=== PATIENT | male | born 1995 | race Caucasian/White ===

== ENCOUNTER 2017-11-13 09:22 | Emergency (ER) | payer OTHER ==
--- NOTE | 2017-11-13 09:55 | ERPHSYRPT ---
- History of Present Illness Time Seen by Provider: 11/13/17 09:44 Source: patient, family Exam Limitations: no limitations Patient Subjective Stated Complaint: Pt states "I started to vomit this morning around 7 am and it is changing color. It started out clear and now it is a brownish color" Triage Nursing Assessment: Pt alert and oriented X 3, skin pwd. Pt ambulates without difficulty, able to speak in clear full sentences. No apparent respiratory distress. Physician History: The patient is a 22-year-old male with his girlfriend and mother complaining that he vomited 3 times over the last 2-1/2 hours. He first vomited at 7 AM. The patient states that he feels a choking feeling in his throat, he then coughs , and then he vomits. He denies any abdominal pain. He denies diarrhea or fever. Stomach contents has been fluid without food. He works nights and on the way home from work he drank a Pepsi. He is concerned because the color of the vomit has gone from clear to brown to some pinkish. He last ate at 2 AM or 7 hours ago. His last meal was chicken. His past medical history is significant only for a bone spur in his left shoulder that was shaved during surgery. He takes no medicines. Timing/Duration: today, hour(s) (2 2/12 hrs), sudden Severity: mild Modifying Factors: Improves With: nothing Associated Symptoms: vomiting, No nausea, No abdominal pain, No chills, No fever , No syncope, No weakness Allergies/Adverse Reactions: Fish Containing Products Adverse Reaction (Verified 11/13/17 09:33) sick Hx Tetanus, Diphtheria Vaccination/Date Given: No Hx Influenza Vaccination/Date Given: No Hx Pneumococcal Vaccination/Date Given: No Immunizations Up to Date: Yes - Review of Systems Constitutional: No Fever, No Chills Eyes: No Symptoms Ears, Nose, & Throat: No Symptoms Respiratory: No Cough, No Dyspnea Cardiac: No Chest Pain, No Edema, No Syncope Abdominal/Gastrointestinal: Vomiting, No Abdominal Pain, No Nausea, No Diarrhea , No Hematemesis Genitourinary Symptoms: No Dysuria Musculoskeletal: No Back Pain, No Neck Pain Skin: No Rash Neurological: No Dizziness, No Focal Weakness, No Sensory Changes Psychological: No Symptoms Endocrine: No Symptoms Hematologic/Lymphatic: No Symptoms Immunological/Allergic: No Symptoms All Other Systems: Reviewed and Negative - Past Medical History Pertinent Past Medical History: No - Past Surgical History Past Surgical History: Yes Other Surgical History: bone spur off left clavicle - Social History Smoking Status: Never smoker Exposure to second hand smoke: No Drug Use: none Patient Lives Alone: No - Nursing Vital Signs Nursing Vital Signs: Initial Vital Signs Temperature 96.6 F 11/13/17 09:26 Pulse Rate 108 H 11/13/17 09:26 Respiratory Rate 16 11/13/17 09:26 Blood Pressure 178/106 11/13/17 09:26 O2 Sat by Pulse Oximetry 100 11/13/17 09:26 Pain Scale Pain Intensity 0 - Physical Exam General Appearance: no apparent distress, alert Eye Exam: PERRL/EOMI, eyes nml inspection Ears, Nose, Throat Exam: normal ENT inspection, TMs normal, pharynx normal, moist mucous membranes Neck Exam: normal inspection, non-tender, supple, full range of motion Respiratory Exam: normal breath sounds, lungs clear, No respiratory distress Cardiovascular Exam: normal heart sounds, normal peripheral pulses, tachycardia Gastrointestinal/Abdomen Exam: soft, normal bowel sounds, No tenderness, No mass Rectal Exam: not done Back Exam: normal inspection, normal range of motion, No CVA tenderness, No vertebral tenderness Extremity Exam: normal inspection, normal range of motion, pelvis stable Neurologic Exam: alert, oriented x 3, cooperative, normal mood/affect, nml cerebellar function, nml station & gait, sensation nml, No motor deficits Skin Exam: normal color, warm, dry, No rash Lymphatic Exam: No adenopathy SpO2 Interpretation: normal SpO2: 100 Oxygen Delivery: Room Air - Radiology Exams Chest X-ray Interpretation: Reviewed by me, Teleradiologist Report, Negative (per Dr Romero) Abdomen X-ray Interpretation: Reviewed by me, Teleradiologist Report, Negative (per Dr Romero.) Ordered Tests: Active Orders 24 hr Category Date Time Status IV Insertion STAT Care 11/13/17 10:00 Active OBSTR/ACUTE ABDOMEN SERIES Stat Exams 11/13/17 10:01 Completed CBC W DIFF Stat Lab 11/13/17 10:24 Completed CMP Stat Lab 11/13/17 10:24 Completed LIPASE Stat Lab 11/13/17 10:24 Completed Lactic Acid Stat Lab 11/13/17 10:00 Completed UA W/RFX UR CULTURE Stat Lab 11/13/17 10:31 Completed Urine Triage Profile Stat Lab 11/13/17 10:31 Completed Medication Summary Discontinued Medications Generic Name Dose Route Start Last Admin Trade Name Jalyn PRN Reason Stop Dose Admin Sodium Chloride 1,000 mls @ 999 mls/hr 11/13/17 10:00 11/13/17 10:20 Sodium Chloride 0.9% 1000 Ml IV 11/13/17 11:00 999 mls/hr .Q1H1M STA Administration Sodium Chloride Confirm 11/13/17 10:10 Sodium Chloride 0.9% 1000 Ml Administered 11/13/17 10:11 Dose 1,000 mls @ ud .ROUTE .STK-MED ONE Promethazine HCl 25 mg 11/13/17 10:00 11/13/17 10:20 Phenergan 25 Mg Inj IV 11/13/17 10:01 25 mg STAT ONE Administration Promethazine HCl Confirm 11/13/17 10:10 Phenergan 25 Mg Inj Administered 11/13/17 10:11 Dose 25 mg .ROUTE .STK-MED ONE Lab/Rad Data: Laboratory Result Diagrams 11/13/17 10:24 11/13/17 10:24 Laboratory Results 11/13/17 11/13/17 11/13/17 Range/Units 10:31 10:31 10:24 WBC (4.0-10.5) K/mm3 RBC (4.1-5.6) M/mm3 Hgb (12.5-18.0) gm/dl Hct (42-50) % MCV (78-100) fl MCH (26-32) pg MCHC (32-36) g/dl RDW (11.5-14.0) % Plt Count (150-450) K/mm3 MPV (6-9.5) fl Gran % (36.0-66.0) % Lymphocytes % (24.0-44.0) % Monocytes % (0.0-12.0) % Eosinophils % (0.00-5.0) % Basophils % (0.0-0.4) % Basophils # (0-0.4) Sodium 142 (136-145) mEq/L Potassium 3.6 (3.5-5.1) mEq/L Chloride 105 (98-107) mEq/L Carbon Dioxide 27.6 (21-32) mEq/L Anion Gap 13.2 (5-15) MEQ/L BUN 23 H (9-20) mg/dL Creatinine 1.36 H (0.55-1.30) mg/dl Estimated GFR > 60 ML/MIN Glucose 107 (70-110) MG/DL Lactic Acid (0.4-2.0) Calcium 9.5 (8.5-10.1) mg/dL Total Bilirubin 0.80 (0.2-1.0) mg/dL AST 23 (15-37) U/L ALT 29 (12-78) U/L Alkaline Phosphatase 77 (46-116) U/L Serum Total Protein 7.9 (6.4-8.2) gm/dL Albumin 4.3 (3.4-5.0) g/dL Lipase 144 (73-393) U/L Ur Collection Type VOID Urine Color COLORLESS (YELLOW) Urine Appearance CLEAR (CLEAR) Urine pH 5.0 (5-6) Ur Specific [place] 1.005 (1.005-1.025) Urine Protein NEGATIVE (Negative) Urine Ketones NEGATIVE (NEGATIVE) Urine Blood NEGATIVE (0-5) Nitin/ul Urine Nitrite NEGATIVE (NEGATIVE) Urine Bilirubin NEGATIVE (NEGATIVE) Urine Urobilinogen NORMAL (0-1) mg/dL Ur Leukocyte Esterase NEGATIVE (NEGATIVE) Urine Culture Reflexed NO (NO) Urine Glucose NEGATIVE (NEGATIVE) mg/dL Urine Opiates Level NEG. (NEGATIVE) Ur Methadone NEG. (NEGATIVE) Urine Barbiturates NEG. (NEGATIVE) Ur Phencyclidine (PCP) NEG. (NEGATIVE) Urine Amphetamine NEG. (NEGATIVE) U Benzodiazepine Level NEG. (NEGATIVE) Urine Cocaine NEG. (NEGATIVE) Urine Marijuana (THC) NEG. (NEGATIVE) Specimen Received 11/13/17 1018 11/13/17 11/13/17 Range/Units 10:24 10:00 WBC 9.5 (4.0-10.5) K/mm3 RBC 4.97 (4.1-5.6) M/mm3 Hgb 15.0 (12.5-18.0) gm/dl Hct 43.5 (42-50) % MCV 87.5 (78-100) fl MCH 30.2 (26-32) pg MCHC 34.5 (32-36) g/dl RDW 11.9 (11.5-14.0) % Plt Count 236 (150-450) K/mm3 MPV 9.5 (6-9.5) fl Gran % 68.7 H (36.0-66.0) % Lymphocytes % 26.5 (24.0-44.0) % Monocytes % 4.5 (0.0-12.0) % Eosinophils % 0.1 (0.00-5.0) % Basophils % 0.2 (0.0-0.4) % Basophils # 0.02 (0-0.4) Sodium (136-145) mEq/L Potassium (3.5-5.1) mEq/L Chloride (98-107) mEq/L Carbon Dioxide (21-32) mEq/L Anion Gap (5-15) MEQ/L BUN (9-20) mg/dL Creatinine (0.55-1.30) mg/dl Estimated GFR ML/MIN Glucose (70-110) MG/DL Lactic Acid 0.7 (0.4-2.0) Calcium (8.5-10.1) mg/dL Total Bilirubin (0.2-1.0) mg/dL AST (15-37) U/L ALT (12-78) U/L Alkaline Phosphatase (46-116) U/L Serum Total Protein (6.4-8.2) gm/dL Albumin (3.4-5.0) g/dL Lipase (73-393) U/L Ur Collection Type Urine Color (YELLOW) Urine Appearance (CLEAR) Urine pH (5-6) Ur Specific [place] (1.005-1.025) Urine Protein (Negative) Urine Ketones (NEGATIVE) Urine Blood (0-5) Nitin/ul Urine Nitrite (NEGATIVE) Urine Bilirubin (NEGATIVE) Urine Urobilinogen (0-1) mg/dL Ur Leukocyte Esterase (NEGATIVE) Urine Culture Reflexed (NO) Urine Glucose (NEGATIVE) mg/dL Urine Opiates Level (NEGATIVE) Ur Methadone (NEGATIVE) Urine Barbiturates (NEGATIVE) Ur Phencyclidine (PCP) (NEGATIVE) Urine Amphetamine (NEGATIVE) U Benzodiazepine Level (NEGATIVE) Urine Cocaine (NEGATIVE) Urine Marijuana (THC) (NEGATIVE) Specimen Received - Progress Progress: improved Counseled pt/family regarding: lab results, diagnosis, need for follow-up, rad results - Departure Time of Disposition: 11:59 Departure Disposition: Home Clinical Impression: Vomiting Condition: Stable Critical Care Time: No Referrals: YARITZA GASPAR [Primary Care Provider] - Additional Instructions: You had vomiting this morning. You were given Phenergan 25 mg and fluids by IV in the ER. Take Zofran 4 mg ODT every 6 hours as needed. You were given a work excuse, if needed, for tonight. Follow-up with your primary medical doctor if the condition persists. Prescriptions: Ondansetron ODT 4 MG [Zofran Odt 4 mg] 1 tab PO Q6H PRN PRN #10 tab.rapdis PRN Reason: Nausea/Vomiting
[2017-11-13] MEDS ORDERED: Sodium Chloride 0.9% 1000 ML 1,000 ML ONE (10:10)
[2017-11-13] MEDS ORDERED: Phenergan 25 MG INJ ONE (10:10)
[2017-11-13] MEDS: Sodium Chloride 0.9% 1000 ML 1,000 ML IV STA (10:20)
[2017-11-13] MEDS: Phenergan 25 MG INJ IV ONE (10:20)
[2017-11-13 10:24] LABS: BASOPHIL % 0.2 % (0.0-0.4); Basophil (Absolute #) 0.02 (0-0.4); Eosinophil % 0.1 % (0.00-5.0); Eosinophil (Absolute #) 0.01 (0-0.5); Granulocyte Absolute (ANC) 6.49 (1.4-6.9); Granulocytes % 68.7 % (36.0-66.0); Hematocrit 43.5 % (42-50); Lymphocyte (Absolute #) 2.51 (1.0-4.6); Lymphocytes % 26.5 % (24.0-44.0); Mean Cell Volume 87.5 fl (78-100); Mean Corpuscular Hemoglobin 30.2 pg (26-32); Mean Corpuscular Hgb Concent. 34.5 g/dl (32-36); Mean Platelet Volume 9.5 fl (6-9.5); Monocyte (Absolute #) 0.43 (0.0-1.3); Monocytes % 4.5 % (0.0-12.0); Platelet Count 236 K/mm3 (150-450); Red Blood Count 4.97 M/mm3 (4.1-5.6); Red Cell Distribution Width 11.9 % (11.5-14.0); White Blood Count 9.5 K/mm3 (4.0-10.5)
[2017-11-13 10:34] LABS: Appearance CLEAR (CLEAR); Bilirubin NEGATIVE (NEGATIVE); Blood NEGATIVE Ery/ul (0-5); Glucose NEGATIVE (NEGATIVE); Ketones NEGATIVE (NEGATIVE); Leukocyte Esterase NEGATIVE (NEGATIVE); Nitrite NEGATIVE (NEGATIVE); Protein,Urine Dip NEGATIVE (Negative); Specific Gravity 1.005 (1.005-1.025); Urobilinogen NORMAL mg/dL (0-1)
[2017-11-13 10:44] LABS: Amphetamine,Urine NEG. (NEGATIVE); Barbiturate,Urine NEG. (NEGATIVE); Benzodiazepine,Urine NEG. (NEGATIVE); Cocaine,Urine NEG. (NEGATIVE); Methadone,Urine NEG. (NEGATIVE); Opiate,Urine NEG. (NEGATIVE); PCP,Urine NEG. (NEGATIVE); THC,Urine NEG. (NEGATIVE)
[2017-11-13 10:49] LABS: ALBUMIN 4.3 g/dL (3.4-5.0); ALKALINE PHOSPHATASE 77 U/L (46-116); ANION GAP 13.2 MEQ/L (5-15); BLOOD UREA NITROGEN 23 mg/dL (9-20); CHLORIDE 105 mEq/L (98-107); Calcium 9.5 mg/dL (8.5-10.1); Carbon Dioxide 27.6 mEq/L (21-32); Creatinine 1 1.36 mg/dl (0.55-1.30); EST GLOMERULAR FILTRATION RATE > 60 ML/MIN; Glucose 107 MG/DL (70-110); LIPASE 144 U/L (73-393); Potassium 3.6 mEq/L (3.5-5.1); SGOT/AST 23 U/L (15-37); SGPT/ALT 29 U/L (12-78); SODIUM 142 mEq/L (136-145); Total Protein 7.9 gm/dL (6.4-8.2)
--- NOTE | 2017-11-13 11:04 | XRAY ---
Indication: Vomiting. Comparison: None 2 views of the abdomen nonacute and nonobstructed. Solid organs and osseous structures unremarkable. Single PA chest demonstrates normal heart, lungs, and bony thorax. Impression: Negative abdomen. Normal 1 view chest.
[2017-11-13 12:00] VITALS: BP 140/79; PULSE 80
[2017-11-13 12:02] VITALS: O2SAT 100
== END 2017-11-13 12:10 | disposition home or self-care (01) ==
LOC: ED 09:22
DX: R11.10 Vomiting, unspecified (principal)
CPT/HCPCS: 36415; 74022; 80053; 80307; 81002; 83605; 83690; 85025; 96360; 96374; 99284; J2550

== ENCOUNTER 2019-11-27 02:17 | Emergency (ER) | payer OTHER ==
[2019-11-27] MEDS ORDERED: Sodium Chloride 0.9% 1000 ML 1,000 ML IV STA (02:57)
[2019-11-27] MEDS ORDERED: BENADRYL 50 MG/ML IV ONE (03:04)
[2019-11-27] MEDS ORDERED: Sodium Chloride 0.9% 1000 ML 1,000 ML ONE (03:04)
[2019-11-27] MEDS ORDERED: solu-MEDROL 125 MG IV ONE (03:05)
[2019-11-27] MEDS ORDERED: solu-MEDROL 125 MG ONE (03:07)
[2019-11-27] MEDS ORDERED: BENADRYL 50 MG/ML ONE (03:07)
[2019-11-27 03:11] LABS: Appearance CLEAR (CLEAR); Bilirubin NEGATIVE (NEGATIVE); Blood NEGATIVE Ery/ul (0-5); Glucose NEGATIVE (NEGATIVE); Ketones NEGATIVE (NEGATIVE); Leukocyte Esterase NEGATIVE (NEGATIVE); Nitrite NEGATIVE (NEGATIVE); Protein,Urine Dip NEGATIVE (Negative); Specific Gravity 1.002 (1.005-1.025); Urobilinogen NEGATIVE mg/dL (0-1)
[2019-11-27 03:28] LABS: Amphetamine,Urine NEGATIVE (NEGATIVE); Barbiturate,Urine NEGATIVE (NEGATIVE); Benzodiazepine,Urine NEGATIVE (NEGATIVE); Cocaine,Urine NEGATIVE (NEGATIVE); Methadone,Urine NEGATIVE (NEGATIVE); Opiate,Urine NEGATIVE (NEGATIVE); PCP,Urine NEGATIVE (NEGATIVE); THC,Urine NEGATIVE (NEGATIVE)
[2019-11-27 03:28] LABS: Absolute Neutrophil Ct (ANC) 4.83 (1.4-6.9); Basophil (Absolute #) 0 (0-0.4); Eosinophil % 0.5 % (0.00-5.0); Eosinophil (Absolute #) 0.04 (0-0.5); Hematocrit 42.2 % (42-50); Hemoglobin 14.3 gm/dl (12.5-18.0); Lymphocyte (Absolute #) 2.51 (1.0-4.6); Lymphocytes % 32.3 % (24.0-44.0); Mean Cell Volume 89.8 fl (78-100); Mean Corpuscular Hemoglobin 30.4 pg (26-32); Mean Corpuscular Hgb Concent. 33.9 g/dl (32-36); Mean Platelet Volume 9.5 fl (7.5-11.0); Monocytes % 5.1 % (0.0-12.0); Neutrophil % 62.1 % (36.0-66.0); Platelet Count 253 K/mm3 (150-450); Red Cell Distribution Width 12.2 % (11.5-14.0); White Blood Count 7.8 K/mm3 (4.0-10.5)
[2019-11-27 03:38] LABS: ALBUMIN 4.4 g/dL (3.5-5.0); ALKALINE PHOSPHATASE 68 U/L (38-126); ANION GAP 11.5 MEQ/L (5-15); BLOOD UREA NITROGEN 15 mg/dL (9-20); CHLORIDE 107 mmol/L (98-107); Carbon Dioxide 27 mmol/L (22-30); Creatinine 1 1.05 mg/dL (0.66-1.25); Glucose 161 mg/dL (74-106); LIPASE 105 U/L (23-300); Potassium 3.8 mmol/L (3.5-5.1); SGOT/AST 23 U/L (17-59); SGPT/ALT 21 U/L (0-50); SODIUM 142 mmol/L (137-145); Total Protein 7.4 g/dL (6.3-8.2)
--- NOTE | 2019-11-27 04:41 | ERPHSYRPT ---
- History of Present Illness Time Seen by Provider: 11/27/19 02:50 Historian: patient Exam Limitations: no limitations Patient Subjective Stated Complaint: pt states he has been having abd pain since approx 1600. points to umbilical area and states pain is mostly when he pushes in that area or bends over. states tonight he has had tremors. Triage Nursing Assessment: pt alert and oriented. answers his questions approp. pt ambulatory with steady gait noted. respirations nonalbored with lungs cta. skin pink warm and dry. Physician History: Patient is a 24-year-old male who presents to our ED with complaints of abdominal pain. Pain started approximately 4 PM today. Pain described as a an ache that is localized just left of the umbilicus. Pain occurs with palpation. Pain essentially resolved with rest. No associated trauma. No fever. No nausea or vomiting. No diarrhea. No testicular pain. Symptoms are moderate in intensity. Patient is otherwise healthy. He voices no other complaints at this time. Patient declined pain medication. Timing/Duration: today Activities at Onset: none (Patient was lying down resting when pain began.) Abdominal Pain Onset Location: periumbilical Pain Radiation: no radiation Severity of Pain-Max: moderate Severity of Pain-Current: moderate Modifying Factors: Improves With: palpation Associated Symptoms: denies symptoms Previous symptoms: no prior history Allergies/Adverse Reactions: Fish Containing Products Adverse Reaction (Verified 11/27/19 02:59) sick Home Medications: No Reportable Medications [No Reported Medications] 11/27/19 [History] Hx Tetanus, Diphtheria Vaccination/Date Given: No Hx Influenza Vaccination/Date Given: No Hx Pneumococcal Vaccination/Date Given: No Immunizations Up to Date: No - Review of Systems Constitutional: No Fever, No Chills Eyes: No Symptoms Ears, Nose, & Throat: No Symptoms Respiratory: No Cough, No Dyspnea Cardiac: No Chest Pain, No Edema, No Syncope Abdominal/Gastrointestinal: Abdominal Pain, No Nausea, No Vomiting, No Diarrhea Genitourinary Symptoms: No Symptoms, No Dysuria Musculoskeletal: No Symptoms, No Back Pain, No Neck Pain Skin: No Symptoms, No Rash Neurological: No Symptoms, No Dizziness, No Focal Weakness, No Sensory Changes Psychological: No Symptoms Endocrine: No Symptoms Hematologic/Lymphatic: No Symptoms Immunological/Allergic: No Symptoms All Other Systems: Reviewed and Negative - Past Medical History Pertinent Past Medical History: No - Past Surgical History Past Surgical History: Yes Other Surgical History: bone spur off left clavicle - Social History Smoking Status: Never smoker Exposure to second hand smoke: No Drug Use: none Patient Lives Alone: No - Nursing Vital Signs Nursing Vital Signs: Initial Vital Signs Temperature 98.3 F 11/27/19 02:42 Pulse Rate 108 H 11/27/19 02:42 Respiratory Rate 20 11/27/19 02:42 Blood Pressure 182/114 11/27/19 02:42 O2 Sat by Pulse Oximetry 98 11/27/19 02:42 Pain Scale Pain Intensity 0 - Physical Exam General Appearance: no apparent distress, alert, other (Patient sitting up in bed. He is conversant well-appearing and in no acute distress. Patient declined pain medication. Patient's pain only occurs with palpation to the involved area.) Eye Exam: PERRL/EOMI, eyes nml inspection Ears, Nose, Throat Exam: normal ENT inspection, pharynx normal, moist mucous membranes Neck Exam: normal inspection, non-tender, supple, full range of motion Respiratory Exam: normal breath sounds, lungs clear, No respiratory distress Cardiovascular Exam: regular rate/rhythm, normal heart sounds Gastrointestinal/Abdomen Exam: soft, tenderness (Tenderness to palpation at area just left of the umbilicus. Overlying soft tissue intact. No signs of trauma.), No mass, No guarding Back Exam: normal inspection, normal range of motion, No CVA tenderness, No vertebral tenderness Extremity Exam: normal inspection, normal range of motion, pelvis stable Neurologic Exam: alert, oriented x 3, cooperative, normal mood/affect, nml cerebellar function, sensation nml, No motor deficits Skin Exam: normal color, warm, dry SpO2 Interpretation: normal SpO2: 97 O2 Delivery: Room Air Ordered Tests: Active Orders 24 hr Category Date Time Status IV Insertion STAT Care 11/27/19 02:57 Active ABDOMEN AND PELVIS W CONTRAST [CT] Stat Exams 11/27/19 02:58 Taken CBC W DIFF Stat Lab 11/27/19 03:20 Completed CMP Stat Lab 11/27/19 03:20 Completed LIPASE Stat Lab 11/27/19 03:20 Completed TSH [TSH, 3RD Generation] Stat Lab 11/27/19 03:20 Completed UA W/RFX UR CULTURE Stat Lab 11/27/19 02:45 Completed Urine Triage Profile Stat Lab 11/27/19 02:45 Completed Medication Summary Discontinued Medications Generic Name Dose Route Start Last Admin Trade Name Jalyn PRN Reason Stop Dose Admin Diphenhydramine HCl 25 mg 11/27/19 03:04 11/27/19 03:08 Benadryl 50 Mg/Ml IV 11/27/19 03:05 25 mg STAT ONE Administration Diphenhydramine HCl Confirm 11/27/19 03:07 Benadryl 50 Mg/Ml Administered 11/27/19 03:08 Dose 50 mg .ROUTE .STK-MED ONE Sodium Chloride 1,000 mls @ 999 mls/hr 11/27/19 02:57 11/27/19 04:24 Sodium Chloride 0.9% 1000 Ml IV 11/27/19 03:57 Infused .Q1H1M STA Infusion Sodium Chloride Confirm 11/27/19 03:04 Sodium Chloride 0.9% 1000 Ml Administered 11/27/19 03:05 Dose 1,000 mls @ ud .ROUTE .STK-MED ONE Methylprednisolone Sodium Succinate 125 mg 11/27/19 03:05 11/27/19 03:08 Solu-Medrol 125 Mg IV 11/27/19 03:06 125 mg STAT ONE Administration Methylprednisolone Sodium Succinate Confirm 11/27/19 03:07 Solu-Medrol 125 Mg Administered 11/27/19 03:08 Dose 125 mg .ROUTE .STK-MED ONE Lab/Rad Data: Laboratory Result Diagrams 11/27/19 03:20 11/27/19 03:20 Laboratory Results 11/27/19 11/27/19 11/27/19 Range/Units 03:20 03:20 03:20 WBC 7.8 (4.0-10.5) K/mm3 RBC 4.70 (4.1-5.6) M/mm3 Hgb 14.3 (12.5-18.0) gm/dl Hct 42.2 (42-50) % MCV 89.8 (78-100) fl MCH 30.4 (26-32) pg MCHC 33.9 (32-36) g/dl RDW 12.2 (11.5-14.0) % Plt Count 253 (150-450) K/mm3 MPV 9.5 (7.5-11.0) fl Gran % 62.1 (36.0-66.0) % Eos # (Auto) 0.04 (0-0.5) Absolute Lymphs (auto) 2.51 (1.0-4.6) Absolute Monos (auto) 0.40 (0.0-1.3) Lymphocytes % 32.3 (24.0-44.0) % Monocytes % 5.1 (0.0-12.0) % Eosinophils % 0.5 (0.00-5.0) % Basophils % 0.0 (0.0-0.4) % Absolute Granulocytes 4.83 (1.4-6.9) Basophils # 0 (0-0.4) Sodium 142 (137-145) mmol/L Potassium 3.8 (3.5-5.1) mmol/L Chloride 107 (98-107) mmol/L Carbon Dioxide 27 (22-30) mmol/L Anion Gap 11.5 (5-15) MEQ/L BUN 15 (9-20) mg/dL Creatinine 1.05 (0.66-1.25) mg/dL Estimated GFR > 60.0 ML/MIN Glucose 161 H (74-106) mg/dL Calcium 10.0 (8.4-10.2) mg/dL Total Bilirubin 0.60 (0.2-1.3) mg/dL AST 23 (17-59) U/L ALT 21 (0-50) U/L Alkaline Phosphatase 68 (38-126) U/L Serum Total Protein 7.4 (6.3-8.2) g/dL Albumin 4.4 (3.5-5.0) g/dL Lipase 105 (23-300) U/L TSH 3rd Generation 3.300 (0.47-4.68) mIU/L Urine Color (YELLOW) Urine Appearance (CLEAR) Urine pH (5-6) Ur Specific [place] (1.005-1.025) Urine Protein (Negative) Urine Ketones (NEGATIVE) Urine Blood (0-5) Nitin/ul Urine Nitrite (NEGATIVE) Urine Bilirubin (NEGATIVE) Urine Urobilinogen (0-1) mg/dL Ur Leukocyte Esterase (NEGATIVE) Urine WBC (Auto) (0-5) /HPF Urine RBC (Auto) (0-2) /HPF U Epithel Cells (Auto) (FEW) /HPF Urine Bacteria (Auto) (NEGATIVE) /HPF Urine Culture Reflexed (NO) Urine Glucose (NEGATIVE) mg/dL Urine Opiates Level (NEGATIVE) Ur Methadone (NEGATIVE) Urine Barbiturates (NEGATIVE) Ur Phencyclidine (PCP) (NEGATIVE) Urine Amphetamine (NEGATIVE) U Benzodiazepine Level (NEGATIVE) Urine Cocaine (NEGATIVE) Urine Marijuana (THC) (NEGATIVE) 11/27/19 11/27/19 Range/Units 02:45 02:45 WBC (4.0-10.5) K/mm3 RBC (4.1-5.6) M/mm3 Hgb (12.5-18.0) gm/dl Hct (42-50) % MCV (78-100) fl MCH (26-32) pg MCHC (32-36) g/dl RDW (11.5-14.0) % Plt Count (150-450) K/mm3 MPV (7.5-11.0) fl Gran % (36.0-66.0) % Eos # (Auto) (0-0.5) Absolute Lymphs (auto) (1.0-4.6) Absolute Monos (auto) (0.0-1.3) Lymphocytes % (24.0-44.0) % Monocytes % (0.0-12.0) % Eosinophils % (0.00-5.0) % Basophils % (0.0-0.4) % Absolute Granulocytes (1.4-6.9) Basophils # (0-0.4) Sodium (137-145) mmol/L Potassium (3.5-5.1) mmol/L Chloride (98-107) mmol/L Carbon Dioxide (22-30) mmol/L Anion Gap (5-15) MEQ/L BUN (9-20) mg/dL Creatinine (0.66-1.25) mg/dL Estimated GFR ML/MIN Glucose (74-106) mg/dL Calcium (8.4-10.2) mg/dL Total Bilirubin (0.2-1.3) mg/dL AST (17-59) U/L ALT (0-50) U/L Alkaline Phosphatase (38-126) U/L Serum Total Protein (6.3-8.2) g/dL Albumin (3.5-5.0) g/dL Lipase (23-300) U/L TSH 3rd Generation (0.47-4.68) mIU/L Urine Color COLORLESS (YELLOW) Urine Appearance CLEAR (CLEAR) Urine pH 6.0 (5-6) Ur Specific [place] 1.002 (1.005-1.025) Urine Protein NEGATIVE (Negative) Urine Ketones NEGATIVE (NEGATIVE) Urine Blood NEGATIVE (0-5) Nitin/ul Urine Nitrite NEGATIVE (NEGATIVE) Urine Bilirubin NEGATIVE (NEGATIVE) Urine Urobilinogen NEGATIVE (0-1) mg/dL Ur Leukocyte Esterase NEGATIVE (NEGATIVE) Urine WBC (Auto) NONE (0-5) /HPF Urine RBC (Auto) NONE (0-2) /HPF U Epithel Cells (Auto) NONE (FEW) /HPF Urine Bacteria (Auto) NONE (NEGATIVE) /HPF Urine Culture Reflexed NO (NO) Urine Glucose NEGATIVE (NEGATIVE) mg/dL Urine Opiates Level NEGATIVE (NEGATIVE) Ur Methadone NEGATIVE (NEGATIVE) Urine Barbiturates NEGATIVE (NEGATIVE) Ur Phencyclidine (PCP) NEGATIVE (NEGATIVE) Urine Amphetamine NEGATIVE (NEGATIVE) U Benzodiazepine Level NEGATIVE (NEGATIVE) Urine Cocaine NEGATIVE (NEGATIVE) Urine Marijuana (THC) NEGATIVE (NEGATIVE) - Progress Counseled pt/family regarding: lab results, diagnosis, need for follow-up, rad results - Departure Departure Disposition: Home Clinical Impression: Abdominal pain, Hyperglycemia, Hypertension, Inflammation of subcutaneous tissue Condition: Good Critical Care Time: No Referrals: MYA ORELLANA MD [ACTIVE STAFF] - DOCTOR,NO FAMILY [Primary Care Provider] - Additional Instructions: CAT scan revealed inflammation of subcutaneous tissue. This may be a sterile inflammation versus possible early infection. There is no indication for antibiotics at this time. Please take anti-inflammatory medication for pain. Monitor your symptoms. If you develop any signs of infection such as redness tenderness fever please follow-up in the emergency room immediately. Otherwise follow-up with your primary care doctor within 48 hours for reevaluation. Discharge/Care Plan EVAJERSON NIEVES was seen on 11/27/19 in the Emergency Room. The patient was counseled regarding Diagnosis,Lab results, Imaging studies, need for follow up and when to return to the Emergency Room. Prescriptions given: Discharge Note I have spoken with the patient and/or caregivers. I have explained the patient' s condition, diagnosis and treatment plan based on the information available to me at this time. I have answered the patient's and/or caregiver's questions and addressed any concerns. The patient and/or caregivers have as good understanding of the patient's diagnosis, condition and treatment plan as can be expected at this point. The vital signs have been stable. The patient's condition is stable and appropriate for discharge from the emergency department. The patient will pursue further outpatient evaluation with the primary care physician or other designated or consulting physician as outlined in the discharge instructions. The patient and/or caregivers are agreeable to this plan of care and follow-up instructions have been explained in detail. The patient and/or caregivers have received these instruction. The patient/and or caregivers are aware that any significant change in condition or worsening of symptoms should prompt an immediate return to this or the closest emergency department or call 911.
[2019-11-27 05:32] VITALS: BP 136/91; PULSE 94; O2SAT 96
--- NOTE | 2019-11-27 09:15 | XRAY ---
Indication: Periumbilical pain weeks. Painful urination. Multiple contiguous axial images obtained through the abdomen and pelvis using 80 cc Isovue 370 contrast. Patient reports history of fish allergy. ER clinician premedicated patient with 125 mg Solu-Medrol and 25 mg Benadryl. Comparison: None. Lung bases demonstrates minimal bilateral dependent atelectasis without infiltrate or effusion. Heart is not enlarged. Noncontrasted stomach and bowel loops appear nonobstructed. Normal appendix. Minimal sigmoid diverticulosis. No free fluid/air. Remaining liver, gallbladder, pancreas, spleen, adrenal glands, kidneys, ureters, bladder, and aorta appear normal in CT appearance and attenuation. No pathologic retroperitoneal lymphadenopathy. Osseous structures intact with incidental T8 and L5 vertebral hemangiomas. No ventral or inguinal hernias. Impression: 1. Minimal sigmoid diverticulosis and incidental T8/L5 vertebral hemangiomas. 2. Remaining CT abdomen/pelvis with contrast exam is negative. Comment: Preliminary interpretation was made by [facility]. No critical discrepancy.
== END 2019-11-27 05:41 | disposition home or self-care (01) ==
LOC: ED 02:17
DX: R10.9 Unspecified abdominal pain (principal); R73.9 Hyperglycemia, unspecified; I10 Essential (primary) hypertension; L08.89 Other specified local infections of the skin and subcutaneous tissue
CPT/HCPCS: 36000; 36415; 74177; 80053; 80307; 81001; 83690; 84443; 85025; 96360; 96374; 99284; J1200; J2930